=== PATIENT | male | born 1955 | race Caucasian/White ===

== ENCOUNTER 2018-01-30 08:03 | Day surgery (SDC) | payer BC ==
[2018-01-28 14:54] VITALS: BMI 33.2
[~2018-01-30 08:03] MED LIST: LACTATED RINGERS 1,000 ML IV SCH; LIDOCAINE 1% 20 ML VIAL (10MG/ML) FOR IV START INTRADERMA PRN
[2018-01-30 08:18] VITALS: TEMP 97.8
[2018-01-30 08:25] LABS: Glucose,Whole Blood 123 mg/dL (75-99)
[2018-01-30] MEDS ORDERED: LACTATED RINGERS 1,000 ML IV ONE (08:27)
[2018-01-30] MEDS ORDERED: PROPOFOL 10 MG/ML 20 ML VIAL IV ONE (08:56)
--- NOTE | 2018-01-30 09:13 | P.PCN ---
Date of Procedure: 01/30/18 Procedure(s) Performed: BRIEF HISTORY: Patient is a 62-year-old pleasant white male, scheduled for an elective colonoscopy as a part of evaluation of prior history of colon polyps. Last colonoscopy was 4 years ago and was noted to have a adenoma. PROCEDURE PERFORMED: Colonoscopy with biopsy. PREOPERATIVE DIAGNOSIS: History of colon polyps. IV sedation per Anesthesia. PROCEDURE: After informed consent was obtained, the patient, was brought into the endoscopy unit. IV sedation was administered by Anesthesia under continuous monitoring. Digital rectal examination was normal. Initially the Olympus CF- 160 flexible video colonoscope was then inserted in the rectum, gradually advanced into the cecum without any difficulty. Careful examination was performed as the scope was gradually being withdrawn. Ileocecal valve and the appendiceal orifice were visualized and appeared normal. Prep was excellent. Mucosa of the cecum, ascending colon, appeared normal. In the transverse colon there was a 5 mm sessile polyp that was removed by cold biopsy. Rest of the transverse colon, descending colon, sigmoid colon, and rectum appeared normal. Retroflexion was performed in the rectum and no lesions were seen. The patient tolerated the procedure well. IMPRESSION: 5 mm sessile transverse colon polyp status post removal by cold biopsy Rest of the colon appeared normal RECOMMENDATIONS: Findings of this examination were discussed with the patient as well as his family. He was advised to follow with the biopsy results and have a repeat surveillance colonoscopy in 5 years.
[2018-01-30 09:29] LABS: Glucose,Whole Blood 126 mg/dL (75-99)
[2018-01-30 09:39] VITALS: BP 131/87; PULSE 69; RESP 18
== END 2018-01-30 09:55 | disposition home or self-care (01) ==
LOC: ORWHC2ENDO 08:03
PROVIDERS: ATTEND Internal Medicine Gastroenterology
DX: Z12.11 Encounter for screening for malignant neoplasm of colon (principal); K63.5 Polyp of colon; Z86.010 Personal history of colon polyps; I10 Essential (primary) hypertension; E11.9 Type 2 diabetes mellitus without complications; Z79.84 Long term (current) use of oral hypoglycemic drugs; G47.33 Obstructive sleep apnea (adult) (pediatric); Z79.899 Other long term (current) drug therapy
CPT/HCPCS: 88305; 45380; J2704

== ENCOUNTER 2019-03-07 10:12 | Emergency (ER) | payer BC, OTHER ==
--- NOTE | 2019-03-07 11:08 | ED ---
General Adult HPI - General Chief complaint: Extremity Problem,Nontraumatic Stated complaint: foot swelling/pain Time Seen by Provider: 03/07/19 10:48 Source: patient, RN notes reviewed Mode of arrival: ambulatory Limitations: no limitations - History of Present Illness Initial comments: Patient is a pleasant 63-year-old male presenting to the emergency Department with complaints of left foot and ankle swelling. Onset of symptoms was a day or so ago. Patient has noticed some redness in the left lateral posterior ankle. There is some mild discomfort as well as itch. Patient did have similar symptoms several months ago on the medial side and developed blisters and then symptoms improved with steroids and antibiotics. No fevers. No calf or leg pain or swelling. - Related Data Home Medications Medication Instructions Recorded Confirmed Memantine [Namenda] 5 mg PO BID 10/08/14 03/07/19 Montelukast [Singulair] 10 mg PO HS 10/08/14 03/07/19 Nebivolol HCl [Bystolic] 2.5 mg PO HS 10/08/14 03/07/19 Simvastatin [Zocor] 40 mg PO HS 10/08/14 03/07/19 metFORMIN HCL [Glucophage] 500 mg PO QAM 01/28/18 03/07/19 Carbidopa/Levodopa 1 tab PO TID 03/07/19 03/07/19 [Carbidopa-Levodopa 10-100 Tab] Citalopram Hydrobromide 10 mg PO DAILY 03/07/19 03/07/19 [Citalopram HBr] Donepezil [Aricept] 5 mg PO DAILY 03/07/19 03/07/19 Dulaglutide [Trulicity] 1.5 mg SQ SA 03/07/19 03/07/19 Meloxicam 15 mg PO DAILY 03/07/19 03/07/19 Previous Rx's Medication Instructions Recorded Cephalexin [Keflex] 500 mg PO QID #40 cap 03/07/19 predniSONE 20 mg PO BID #10 tab 03/07/19 Allergies Allergy/AdvReac Type Severity Reaction Status Date / Time primidone Allergy Hallucinati Verified 03/07/19 11:47 ons Review of Systems ROS Statement: Those systems with pertinent positive or pertinent negative responses have been documented in the HPI. ROS Other: All systems not noted in ROS Statement are negative. Constitutional: Denies: fever Eyes: Denies: eye pain ENT: Denies: ear pain Respiratory: Denies: cough Cardiovascular: Denies: chest pain Endocrine: Denies: fatigue Gastrointestinal: Denies: abdominal pain Genitourinary: Denies: dysuria Musculoskeletal: Denies: back pain Skin: Reports: as per HPI, rash Neurological: Denies: weakness Past Medical History Past Medical History: Cancer, Dementia, Diabetes Mellitus, Hyperlipidemia, Hypertension, Memory Impairment, Sleep Apnea/CPAP/BIPAP Additional Past Medical History / Comment(s): SHORT TERM MEMORY LOSS, hx skin cancer, hx migraines, no cpap used, hx hiatal hernia, diarrhea, Parkinsons History of Any Multi-Drug Resistant Organisms: None Reported Past Surgical History: Appendectomy Additional Past Surgical History / Comment(s): Lap Cr Fundoplication. skin cancer removed from rt leg, Past Anesthesia/Blood Transfusion Reactions: No Reported Reaction Past Psychological History: No Psychological Hx Reported Smoking Status: Current some day smoker Past Alcohol Use History: None Reported Past Drug Use History: None Reported - Past Family History Mother Family Medical History: Vascular Disorder Father Family Medical History: Cancer Additional Family Medical History / Comment(s): Father had prostate cancer. Daughter(s) Family Medical History: Cancer General Exam Limitations: no limitations General appearance: alert, in no apparent distress Head exam: Present: normocephalic Eye exam: Present: normal appearance, PERRL ENT exam: Present: normal oropharynx Neck exam: Present: normal inspection Respiratory exam: Present: normal lung sounds bilaterally Cardiovascular Exam: Present: regular rate, normal rhythm GI/Abdominal exam: Present: soft. Absent: tenderness Extremities exam: Present: other (Swelling of left ankle, more so on the lateral side, mild to moderate. Mild foot swelling. There is also mild erythema approximately 3 x 4 cm left lateral/posterior ankle with mild central increased swelling, possible early blister formation) Neurological exam: Present: alert Psychiatric exam: Present: normal affect, normal mood Skin exam: Present: rash Course Vital Signs 03/07/19 10:38 Temperature 98.1 F Pulse Rate 69 Respiratory 18 Rate Blood Pressure 144/82 O2 Sat by Pulse 98 Oximetry - Reevaluation(s) Reevaluation #1: 03/07/19 11:08 Patient states he does not wear socks. Patient is advised to wear socks to decrease friction between his shoe/boot and foot as well as to keep area clean. Medical Decision Making - Medical Decision Making Patient reevaluated and updated. Patient states he does have an appointment with his pneumatic tube operator on Sunday for routine follow-up for history of basal cell carcinoma and can show this area to him as well. - Radiology Data Radiology results: report reviewed (Ultrasound negative for DVT) Disposition Clinical Impression: Cellulitis Disposition: HOME SELF-CARE Condition: Stable Instructions (If sedation given, give patient instructions): Cellulitis (ED) Additional Instructions: Please follow-up with primary care physician in the next couple of days for recheck. Return for fever, increased swelling, increased redness, worsening symptoms or other concerns. Your prescriptions have been sent to [facility] on [address]. Prescriptions: Cephalexin [Keflex] 500 mg PO QID #40 cap predniSONE 20 mg PO BID #10 tab Is patient prescribed a controlled substance at d/c from ED?: No Referrals: Heriberto Pelletier MD [Primary Care Provider] - 1-2 days Elizabeth Winters MD [STAFF PHYSICIAN] - 1-2 days Time of Disposition: 12:13
--- NOTE | 2019-03-07 12:00 | US ---
EXAMINATION TYPE: US venous doppler duplex LE LT DATE OF EXAM: 03/07/2019 11:06 AM COMPARISON: NONE CLINICAL HISTORY: swelling. Left ankle swelling. SIDE PERFORMED: Left TECHNIQUE: The lower extremity deep venous system is examined utilizing real time linear array sonog amilcar with graded compression, doppler sonography and color-flow sonography. VESSELS IMAGED: External Iliac Vein (EIV) Common Femoral Vein Deep Femoral Vein Greater Saphenous Vein * Femoral Vein Popliteal Vein Small Saphenous Vein * Proximal Calf Veins (* superficial vessels) Left Leg: Negative for DVT There is normal flow, compressibility, vascular waveforms. IMPRESSION: No evident deep venous thrombosis at or above the left knee.
[2019-03-07 12:29] VITALS: BP 135/70; PULSE 72; RESP 20; TEMP 97.6
== END 2019-03-07 12:34 | disposition home or self-care (01) ==
LOC: EC 10:12
DX: L03.116 Cellulitis of left lower limb (principal); E11.9 Type 2 diabetes mellitus without complications; E78.5 Hyperlipidemia, unspecified; I10 Essential (primary) hypertension; G20 Parkinson's disease; F02.80 Dementia in other diseases classified elsewhere, unspecified severity, without behavioral disturbance, psychotic disturbance, mood disturbance, and anxiety; F17.200 Nicotine dependence, unspecified, uncomplicated; Z88.8 Allergy status to other drugs, medicaments and biological substances; Z79.1 Long term (current) use of non-steroidal anti-inflammatories (NSAID); Z79.84 Long term (current) use of oral hypoglycemic drugs; Z79.899 Other long term (current) drug therapy; Z85.828 Personal history of other malignant neoplasm of skin; Z98.890 Other specified postprocedural states
CPT/HCPCS: 99283

== ENCOUNTER → 2019-03-31 | Outpatient (CLI) | payer OTHER ==
[2019-04-01 00:36] LABS: Anti-DNA, DS unit <1.0 IU/mL; DNA Double-Stranded NEGATIVE (NEGATIVE)
[2019-04-01 11:21] LABS: Angiotensin-1 Converting Enz. 47 U/L (8-52)
[2019-04-01 13:16] LABS: APTT 33 Sec(s) (<43); Dilute Russell Viper Venom 38 Sec(s) (<44)
== END | disposition home or self-care (01) ==
LOC: LABWHC1 16:16
PROVIDERS: ATTEND Family Medicine
DX: I10 Essential (primary) hypertension (principal); B89 Unspecified parasitic disease; Z79.899 Other long term (current) drug therapy
CPT/HCPCS: 36415; 82164; 85613; 85652; 85730; 86038; 86225

== ENCOUNTER 2023-11-21 07:46 | Day surgery (SDC) | payer MEDICARE, OTHER ==
[2023-11-19 11:39] VITALS: BMI 32.8
[2023-11-21] MEDS: IV FLUID CONTINUATION 1,000 ML IV ONE (08:01)
[2023-11-21] MEDS: LACTATED RINGERS 1,000 ML IV SCH (08:08)
[2023-11-21 08:09] VITALS: TEMP 97
[2023-11-21 08:13] VITALS: RESP 16
[2023-11-21 08:15] LABS: Glucose,Whole Blood 202 mg/dL (70-110)
[2023-11-21] MEDS ORDERED: PROPOFOL 10 MG/ML 20 ML VIAL IV ONE (08:53)
--- NOTE | 2023-11-21 09:09 | P.PCN ---
Date of Procedure: 11/21/23 Procedure(s) Performed: BRIEF HISTORY: Patient is a 68-year-old pleasant white female scheduled for an elective colonoscopy as a part of evaluation by history of colon polyps. PROCEDURE PERFORMED: Colonoscopy. PREOPERATIVE DIAGNOSIS: History of colon polyps. IV sedation per Anesthesia. PROCEDURE: After informed consent was obtained, the patient, was brought into the endoscopy unit. IV sedation was administered by Anesthesia under continuous monitoring. Digital rectal examination was normal. Initially the Olympus CF-160 flexible video colonoscope was then inserted in the rectum, gradually advanced into the cecum without any difficulty. Careful examination was performed as the scope was gradually being withdrawn. Ileocecal valve and the appendiceal orifice were visualized and appeared normal. Prep was fair. There was a lot of sticky stool noted throughout the entire colon that was thoroughly irrigated mucosa of the cecum, ascending colon, transverse colon, descending colon, sigmoid colon, and rectum appeared normal. Retroflexion was performed in the rectum and no lesions were seen. The patient tolerated the procedure well. IMPRESSION: Normal-appearing colon from rectum to cecum no evidence of colorectal neoplasia. RECOMMENDATIONS: Findings of this examination were discussed with the patient as well as his family. He was advised to have a repeat screening colonoscopy in 10 years.
[2023-11-21 09:14] VITALS: PULSE 61
[2023-11-21 09:31] VITALS: BP 101/59
== END 2023-11-21 09:59 | disposition home or self-care (01) ==
LOC: ORWHC2ENDO 07:46
PROVIDERS: ATTEND Internal Medicine Gastroenterology
DX: Z12.11 Encounter for screening for malignant neoplasm of colon (principal); I10 Essential (primary) hypertension; E78.5 Hyperlipidemia, unspecified; G47.33 Obstructive sleep apnea (adult) (pediatric); E11.9 Type 2 diabetes mellitus without complications; F03.90 Unspecified dementia, unspecified severity, without behavioral disturbance, psychotic disturbance, mood disturbance, and anxiety; Z87.891 Personal history of nicotine dependence; Z86.010 Personal history of colon polyps; Z79.899 Other long term (current) drug therapy; Z90.49 Acquired absence of other specified parts of digestive tract; Z98.890 Other specified postprocedural states
CPT/HCPCS: J2704; G0121

== ENCOUNTER 2024-07-15 07:25 | Emergency (ER) | payer MEDICARE ==
[2024-07-15] MEDS: ONDANSETRON 4 MG/2 ML VIAL IVP STA (07:57)
--- NOTE | 2024-07-15 08:00 | ED ---
General Adult HPI - General Chief complaint: Fall Stated complaint: fall, head injury Time Seen by Provider: 07/15/24 07:30 Source: patient Mode of arrival: EMS Limitations: no limitations - History of Present Illness Initial comments: 69-year-old male with past medical history of diabetes, hypertension, hyperlipidemia who presents to the emergency department after a fall. Patient was out walking his dog when he slipped on ice and fell. Patient does not exactly remember the details of the incident other than that. Son found the patient in his car. Patient does not remember getting up off the ground and moving to his vehicle. At this time he is complaining of a global headache without visual change. He also admits to nausea. Patient is complaining of some neck pain and is in a c-collar. He denies any numbness, tingling or weak ness in his extremities. He denies any pain in his upper or lower extremities. No chest pain or difficulty breathing. Does admit to some intrascapular back pain. Patient does not take any blood thinners. He was not given anything by EMS. No other alleviating, precipitating or modifying factors - Related Data Home Medications Medication Instructions Recorded Confirmed Montelukast [Singulair] 10 mg PO HS 10/08/14 11/21/23 Simvastatin [Zocor] 40 mg PO HS 10/08/14 11/21/23 Carbidopa/Levodopa 1 tab PO TID 03/07/19 11/21/23 [Carbidopa-Levodopa 10-100 Tab] Donepezil [Aricept] 5 mg PO DAILY 03/07/19 11/21/23 Meloxicam 15 mg PO DAILY 03/07/19 11/21/23 Donepezil [Aricept] 10 mg PO HS 11/19/23 11/21/23 Furosemide [Lasix] 20 mg PO DAILY 11/19/23 11/21/23 Gabapentin 600 mg PO DAILY 11/19/23 11/21/23 Ipratropium [place] 0.2 mg INHALATION BID 11/19/23 11/21/23 Repaglinide [Prandin] 0.5 mg PO AC-BID 11/19/23 11/21/23 Sertraline [Zoloft] 100 mg PO DAILY 11/19/23 11/21/23 Tamsulosin HCl [Flomax] 0.4 mg PO BID 11/19/23 11/21/23 atenoloL 25 mg PO BID 11/19/23 11/21/23 risperiDONE [RisperDAL] 0.5 mg PO HS 11/19/23 11/21/23 Allergies Allergy/AdvReac Type Severity Reaction Status Date / Time primidone Allergy Hallucinati Verified 07/15/24 07:33 ons Review of Systems ROS Statement: Those systems with pertinent positive or pertinent negative responses have been documented in the HPI. ROS Other: All systems not noted in ROS Statement are negative. Past Medical History Past Medical History: Cancer, Dementia, Diabetes Mellitus, Hyperlipidemia, Hypertension, Memory Impairment, Sleep Apnea/CPAP/BIPAP Additional Past Medical History / Comment(s): SHORT TERM MEMORY LOSS, hx skin cancer, hx migraines, cpap used, diarrhea, Parkinsons History of Any Multi-Drug Resistant Organisms: None Reported Past Surgical History: Appendectomy Additional Past Surgical History / Comment(s): Lap Cr Fundoplication. skin cancer removed from rt leg, EGD, COLONOSCOPY, LYMPH NODES REMOVED UNDER RT ARM- BENIGN Past Anesthesia/Blood Transfusion Reactions: No Reported Reaction Past Psychological History: Anxiety, Depression Smoking Status: Current some day smoker, Former smoker Past Alcohol Use History: None Reported Past Drug Use History: None Reported - Past Family History Father Family Medical History: Cancer Additional Family Medical History / Comment(s): Father had prostate cancer. Daughter(s) Family Medical History: Cancer General Exam Limitations: no limitations General appearance: alert, in no apparent distress Head exam: Present: normocephalic, other (small abrasion posterior occiput) Eye exam: Present: normal appearance, PERRL, EOMI. Absent: scleral icterus, conjunctival injection, periorbital swelling ENT exam: Present: normal exam, mucous membranes moist Neck exam: Present: normal inspection. Absent: tenderness, meningismus, lymphadenopathy Respiratory exam: Present: normal lung sounds bilaterally. Absent: respiratory distress, wheezes, rales, rhonchi, stridor Cardiovascular Exam: Present: bradycardia GI/Abdominal exam: Present: soft, normal bowel sounds. Absent: distended, tenderness, guarding, rebound, rigid Extremities exam: Present: normal inspection Neurological exam: Present: alert Psychiatric exam: Present: flat affect Skin exam: Present: warm, dry, intact, normal color. Absent: rash Course Vital Signs 07/15/24 07/15/24 07:27 08:56 Temperature 97.0 F L Pulse Rate 46 L 49 L Respiratory 18 18 Rate Blood Pressure 138/71 129/70 O2 Sat by Pulse 98 96 Oximetry Medical Decision Making - Medical Decision Making Was pt. sent in by a medical professional or institution (RASHID Castle, [employer], urgent care, hospital, or retirement...) When possible be specific @ -No Did you speak to anyone other than the patient for history (EMS, parent, family, police, friend...)? What history was obtained from this source @ -Spoke with EMS for history as well as the son Did you review nursing and triage notes (agree or disagree)? Why? @ -I reviewed and agree with nursing and triage notes Were old charts reviewed (outside hosp., previous admission, EMS record, old EKG, old radiological studies, urgent care reports/EKG's, retirement records)? Report findings @ -No old charts were reviewed Differential Diagnosis (chest pain, altered mental status, abdominal pain women, abdominal pain men, vaginal bleeding, weakness, fever, dyspnea, syncope, h eadache, dizziness, GI bleed, back pain, seizure, CVA, palpatations, mental health, musculoskeletal)? @ -Differential Altered Mental Status: Hypoglycemia, DKA, hypercapnia, ETOH, overdose, CO poisoning, trauma, myxedema coma, HTN encephalopathy, infection, encephalitis, psychosis, intercranial hem orrhage, hepatic encephalopathy, meningitis, CVA, this is not meant to be an all-inclusive list EKG interpreted by me (3pts min.). @ -Yes and demonstrates sinus bradycardia with a rate of 46. WI interval 214. QRS 108. QTc of 444. No high degree block. X-rays interpreted by me (1pt min.). @ -None done CT interpreted by me (1pt min.). @ -Yes and demonstrates subarachnoid and subdural hemorrhage. No cervical or thoracic fractures U/S interpreted by me (1pt. min.). @ -None done What testing was considered but not performed or refused? (CT, X-rays, U/S, labs)? Why? @ -None What meds were considered but not given or refused? Why? @ -None Did you discuss the management of the patient with other professionals (professionals i.e. Dr., PA, [employer]ER, lab, RT, psych nurse, social sciences lecturer, sofa cover inspector, teacher, certified juvenile probation officer, lead case manager)? Give summary @ -Spoke with Dr. Lee at [facility] who accepts transfer of the patient Was smoking cessation discussed for >3mins.? @ -No Was critical care preformed (if so, how long)? @ -Yes, 40 minutes for management of intracranial hemorrhage Were there social determinants of health that impacted care today? How? (Homelessness, low income, unemployed, alcoholism, drug addiction, transportation, low edu. Level, literacy, decrease access to med. care, [facility], rehab)? @ -No Was there de-escalation of care discussed even if they declined (Discuss DNR or withdrawal of care, Hospice)? DNR status @ -No What co-morbidities impacted this encounter? (DM, HTN, Smoking, COPD, CAD, Cancer, CVA, ARF, Chemo, Hep., AIDS, mental health diagnosis, sleep apnea, morbid obesity)? @ -Hypertension Was patient admitted / discharged? Hospital course, mention meds given and route, prescriptions, significant lab abnormalities, going to OR and other pertinent info. @ -Upon arrival patient seen and evaluated in room 29. Thorough history and physical exam was performed. IV access had been established by EMS. He was reporting nausea and therefore he received 4 mg of Zofran. Laboratory studies are conducted. Patient is sent for CT of his brain, cervical spine and thoracic spine. CT of the brain does demonstrate a subarachnoid and subdural hemorrha ge. I did speak to the patient about this and the need for transfer. Patient was agreeable to transfer to [facility]. He did call and speak with Dr. Lee. He was agreeable to the transfer. Patient is given a 2 mg dose of morphine for pain control. C-collar will remain in place due to continued neck pain. Patient transferred in stable condition with a guarded prognosis Undiagnosed new problem with uncertain prognosis? @ -No Drug Therapy requiring intensive monitoring for toxicity (Heparin, Nitro, Insulin, Cardizem)? @ -No Were any procedures done? @ -No Diagnosis/symptom? @ -Acute fall, blunt head trauma, acute subdural and subarachnoid hemorrhage Acute, or Chronic, or Acute on Chronic? @ -Acute Uncomplicated (without systemic symptoms) or Complicated (systemic symptoms)? @ -Complicated Side effects of treatment? @ -No Exacerbation, Progression, or Severe Exacerbation? @ -No Poses a threat to life or bodily function? How? (Chest pain, [place], [place], pneumonia, PE, COPD, DKA, ARF, appy, cholecystitis, CVA, Diverticulitis, Homicidal, Suicidal, threat to staff... and all critical care pts) @ -Yes as patient does have intracranial hemorrhage - Lab Data Result diagrams: 07/15/24 08:31 07/15/24 08:31 Lab Results 07/15/24 07/15/24 07/15/24 Range/Units 08:31 08:31 08:31 WBC 3.7 L (3.8-10.6) k/uL RBC 4.44 (4.30-5.90) m/uL Hgb 14.9 (13.0-17.5) gm/dL Hct 43.5 (39.0-53.0) % MCV 98.0 (80.0-100.0) fL MCH 33.5 (25.0-35.0) pg MCHC 34.2 (31.0-37.0) g/dL RDW 14.1 (11.5-15.5) % Plt Count 111 L (150-450) k/uL MPV 8.1 Neutrophils % 71 % Lymphocytes % 18 % Monocytes % 6 % Eosinophils % 2 % Basophils % 1 % Neutrophils # 2.6 (1.3-7.7) k/uL Lymphocytes # 0.7 L (1.0-4.8) k/uL Monocytes # 0.2 (0-1.0) k/uL Eosinophils # 0.1 (0-0.7) k/uL Basophils # 0.0 (0-0.2) k/uL Sodium 135 L (137-145) mmol/L Potassium 4.2 (3.5-5.1) mmol/L Chloride 101 (98-107) mmol/L Carbon Dioxide 26 (22-30) mmol/L Anion Gap 8 mmol/L BUN 24 H (9-20) mg/dL Creatinine 0.77 (0.66-1.25) mg/dL Est GFR (CKD-EPI)AfAm >90 (>60 ml/min/1.73 sqM) Est GFR (CKD-EPI)NonAf >90 (>60 ml/min/1.73 sqM) Glucose 275 H (74-99) mg/dL Calcium 8.9 (8.4-10.2) mg/dL Total Bilirubin 0.7 (0.2-1.3) mg/dL AST 31 (17-59) U/L ALT 29 (4-49) U/L Alkaline Phosphatase 115 (38-126) U/L Troponin I <0.012 (0.000-0.034) ng/mL Total Protein 6.2 L (6.3-8.2) g/dL Albumin 3.9 (3.5-5.0) g/dL Disposition Clinical Impression: Fall, Blunt head trauma, Subarachnoid bleed, Subdural hemorrhage, Bradycardia Disposition: OTHER INSTITUTION NOT DEFINED Condition: Serious Is patient prescribed a controlled substance at d/c from ED?: No Referrals: Heriberto Pelletier MD [Primary Care Provider] - 1-2 days Time of Disposition: 09:13 - Out of Hospital Transfer - Req. Specs Out of Hospital Transfer - Requested Specifics: Other Emergency Center ([facility])
[2024-07-15 08:44] LABS: Basophils % (A) 1 %; Eosinophils # (A) 0.1 k/uL (0-0.7); Eosinophils % (A) 2 %; HCT 43.5 % (39.0-53.0); HGB 14.9 gm/dL (13.0-17.5); Lymphocytes # (A) 0.7 k/uL (1.0-4.8); Lymphocytes % (A) 18 %; MCH 33.5 pg (25.0-35.0); MCHC 34.2 g/dL (31.0-37.0); Mean Platelet Volume 8.1; Monocytes # (A) 0.2 k/uL (0-1.0); Monocytes % (A) 6 %; Neutrophils # (A) 2.6 k/uL (1.3-7.7); Neutrophils % (A) 71 %; Platelet Count 111 k/uL (150-450); RBC 4.44 m/uL (4.30-5.90); RDW 14.1 % (11.5-15.5); WBC 3.7 k/uL (3.8-10.6)
--- NOTE | 2024-07-15 08:49 | CT ---
EXAMINATION TYPE: CT thoracic spine wo con DATE OF EXAM: 07/15/2024 8:19 AM COMPARISON: Plain film. 09/30/2014 CT. CLINICAL INDICATION: Male, 69 years old with history of back pain; PHH, Back pain post fall on ice TECHNIQUE: Axial images of the thoracic spine were obtained without contrast. Coronal and sagittal re formats were performed. Contrast used: mL of , none Oral contrast used: none CT DLP: 1302.2 mGycm, Automated exposure control for dose reduction was used. FINDINGS: The thoracic vertebral bodies have preserved heights and alignment. Intervertebral discs and osseous structures have normal appearance. Scattered osteophyte formation and facet joint arthro otto. I do not see any evidence of extradural defects nor significant spinal canal narrowing at any thoraci c vertebral body level. There is fusion of the first rib and the second rib on the right. IMPRESSION: 1. No spinal canal or neural foraminal stenosis is identified. 2. Mild to moderate degeneration changes of the spine. [facility], , 07/15/2024 8:47 AM
[2024-07-15 08:52] LABS: ALT 29 U/L (4-49); AST 31 U/L (17-59); African American GFR (CKD) >90 (>60 ml/min/1.73 sqM); Albumin 3.9 g/dL (3.5-5.0); Alkaline Phosphatase 115 U/L (38-126); Anion Gap 8 mmol/L; Blood Urea Nitrogen 24 mg/dL (9-20); Calcium 8.9 mg/dL (8.4-10.2); Carbon Dioxide 26 mmol/L (22-30); Chloride 101 mmol/L (98-107); Glucose 275 mg/dL (74-99); Non-African American GFR(CKD) >90 (>60 ml/min/1.73 sqM); Potassium 4.2 mmol/L (3.5-5.1); Sodium 135 mmol/L (137-145); Total Bilirubin 0.7 mg/dL (0.2-1.3); Total Protein 6.2 g/dL (6.3-8.2)
--- NOTE | 2024-07-15 08:56 | CT ---
EXAMINATION TYPE: CT brain cspine wo con DATE OF EXAM: 07/15/2024 8:19 AM COMPARISON: None. CLINICAL INDICATION: Male, 69 years old with history of head injury; slip and fall on ice, head and n iris pain, confusion at onset of injury, now baseline, pain TECHNIQUE: Brain: Multiple axial CT images of the brain were obtained without IV contrast. Cspine: Axial CT images from the skull base to the inferior aspect of T2 we obtained without intraven ous contrast. Coronal and sagittal reformatted images were also reviewed. . CT DLP: 1728.8 mGycm, Automated exposure control for dose reduction was used. FINDINGS: Brain: Extra-axial spaces: No abnormal extra-axial fluid collections. High density blood products layering a long the falx. High density blood proximal also interdigitating sulci in the right posterior frontal lobe/parietal region. Blood products layering along the tentorium. Ventricular system: Within normal limits Cerebral parenchyma: No acute intraparenchymal hemorrhage or mass effect. The petersen-white junction is well differentiated. Cerebellum: Unremarkable. Mass effect: No evidence of midline shift. Intracranial vasculature: Atherosclerotic calcifications of the intracranial vessels. Soft tissues: Normal. Calvarium/osseous structures: No depressed skull fracture. Paranasal sinuses and mastoid air cells: Mild scattered mucosal thickening and or secretions. Visualized orbits: Orbital contents are intact. Cervical spine: Fracture: None. Osseous structures: Multilevel degenerative disc disease changes with endplate spurring and disc oste ophyte complex's. Large osteophytes impresses upon the esophagus and oropharynx. Vertebral alignment: Within normal limits. Spinal canal/Neural Foramina: No evidence of significant spinal canal narrowing. No evidence for sign ificant neural foraminal stenosis. Neck soft tissues: Prevertebral soft tissues are within normal limits. Other: The airway is patent. The lung apices are clear. IMPRESSION: 1. Acute subdural and subarachnoid hemorrhage. No evidence of midline shift. 2. No acute intracranial process. 3. No evidence of cervical spine fracture. 4. Moderate multilevel degenerative disc disease. 5. No evidence for skull fracture. Findings communicated to Suzie Johns DO on 07/15/2024 8:[address] Arslan Daniels. [facility], , 07/15/2024 8:54 AM
[2024-07-15] MEDS: MORPHINE SULFATE 2 MG/ML SYRINGE IVP ONE (09:26)
[2024-07-15 11:15] VITALS: BP 127/80; PULSE 49; RESP 18; TEMP 98
== END 2024-07-15 09:32 | disposition other institution (70) ==
LOC: EC 07:25
DX: S06.5XAA Traumatic subdural hemorrhage with loss of consciousness status unknown, initial encounter (principal); S06.6XAA Traumatic subarachnoid hemorrhage with loss of consciousness status unknown, initial encounter; S00.01XA Abrasion of scalp, initial encounter; R00.1 Bradycardia, unspecified; R40.2362 Coma scale, best motor response, obeys commands, at arrival to emergency department; R40.2142 Coma scale, eyes open, spontaneous, at arrival to emergency department; R40.2252 Coma scale, best verbal response, oriented, at arrival to emergency department; I10 Essential (primary) hypertension; F17.200 Nicotine dependence, unspecified, uncomplicated; Z79.899 Other long term (current) drug therapy; Z88.8 Allergy status to other drugs, medicaments and biological substances; W00.0XXA Fall on same level due to ice and snow, initial encounter; Y93.K1 Activity, walking an animal
CPT/HCPCS: 36415; 93005; 80053; 84443; 84484; 85025; 72128; 72125; 70450; 99291; 96374; 96375; J2405; J2270

== ENCOUNTER → 2024-08-06 | Outpatient (CLI) | payer MEDICARE ==
[2024-08-06 11:39] LABS: African American GFR (CKD) >90 (>60 ml/min/1.73 sqM); Blood Urea Nitrogen 29 mg/dL (9-20); Non-African American GFR(CKD) 84 (>60 ml/min/1.73 sqM)
--- NOTE | 2024-08-06 12:57 | CT ---
EXAMINATION TYPE: CT brain wo/w con DATE OF EXAM: 08/06/2024 COMPARISON: Prior CT brain July 15, 2024 CLINICAL INDICATION: Male, 69 years old with history of G44.89 HEADACHE, Follow up on recent brain bl eed., TECHNIQUE: CT scan of the head is performed without and with IV Contrast, patient injected with 100 ml mL of Isovue 300.(none if empty) CT DLP: 2386 mGycm, Automated exposure control for dose reduction was used. FINDINGS: Noncontrast images show no new acute intracranial hemorrhage or midline shift. There is n ow dense calcification of previously visualized linear hyperdensity in the right occipital region. Th e ventricles and sulci are within normal limits in size for patient's age. Salguero-white matter differen tiation fairly well preserved. Postcontrast images show no suspicious enhancing intraparenchymal mass . The globes are intact and the visualized sinuses are clear. IMPRESSION: Resolved small amount of acute intracranial hemorrhage. No new acute intracranial hemorrh age. No suspicious enhancing masses. [facility], , 08/06/2024 12:55 PM
== END | disposition home or self-care (01) ==
LOC: RADCTMAIN 11:05
PROVIDERS: ATTEND Family Medicine
DX: S00.83XA Contusion of other part of head, initial encounter (principal); R55 Syncope and collapse; G44.89 Other headache syndrome; X58.XXXA Exposure to other specified factors, initial encounter
CPT/HCPCS: 82565; 84520; 70470; 36415; Q9967